=== PATIENT | female | born 1990 | race Caucasian/White ===

== ENCOUNTER 2020-06-28 13:48 | Emergency (ER) | payer OTHER ==
[~2020-06-28] VITALS: Ht 170.2 cm; Wt 77.1 kg
[2020-06-28] MEDS ORDERED: BIRTH CONTROL (13:58)
[2020-06-28] MEDS ORDERED: IBUPROFEN 800800 M1 PO (14:58)
[2020-06-28 15:16] VITALS: BP 120/60
== END 2020-06-28 15:17 | disposition home or self-care (01) ==
LOC: M.ERS 13:48
DX: S93.492A Sprain of other ligament of left ankle, initial encounter (principal); Z88.8 Allergy status to other drugs, medicaments and biological substances; X50.1XXA Overexertion from prolonged static or awkward postures, initial encounter; Y93.44 Activity, trampolining; Y92.89 Other specified places as the place of occurrence of the external cause; Y99.8 Other external cause status

== ENCOUNTER 2021-01-22 18:45 | Emergency (ER) | payer OTHER ==
[~2021-01-22] VITALS: Ht 170.2 cm; Wt 82.6 kg
[~2021-01-22 18:45] MED LIST: BIRTH CONTROL; IBUPROFEN 800800 M1 PO
[2021-01-22 19:31] LABS: ABSOLUTE EOSINOPHILS 0.2 thou/uL (0.0-0.7); ABSOLUTE LYMPHOCYTES 2.4 thou/uL (0.8-5.3); ABSOLUTE MONOCYTES 0.6 thou/uL (0.0-1.2); ABSOLUTE NEUTROPHILS 4.2 thou/uL (1.6-8.1); BASOPHILS 0.5 %; EOSINOPHILS 2.6 %; HEMATOCRIT 37.8 % (37.0-47.0); LYMPHOCYTES 32.1 %; MCHC 34.4 g/dL (28.0-37.0); MCV 84.4 fL (80.0-100.0); MONOCYTES 7.8 %; MPV 6.8 fl. (7.2-11.1); NUCLEATED RBCS 0 /100WBC; PLATELET COUNT* 303 thou/uL (150-400); RBC 4.48 mil/uL (4.20-5.00); RDW-CV 13.2 % (10.5-14.5); WBC 7.4 thou/uL (4.0-11.0)
[2021-01-22 19:36] LABS: URINE BILIRUBIN NEGATIVE (Negative); URINE BLOOD 2+ (Negative); URINE COLOR YELLOW; URINE GLUCOSE-RANDOM NEGATIVE (Negative); URINE KETONES NEGATIVE (Negative); URINE LEUKOCYTES-REFLEX NEGATIVE (Negative); URINE NITRITE-REFLEX NEGATIVE (Negative); URINE PROTEIN NEGATIVE (Negative)
[2021-01-22 19:37] LABS: URINE CLARITY CLOUDY
[2021-01-22 19:41] LABS: SQUAMOUS 4-10 Moderate /LPF (0-3)
[2021-01-22 19:41] LABS: CALCIUM 8.5 mg/dL (8.5-10.1); CREATININE 0.8 mg/dL (0.6-1.3); POTASSIUM 3.7 mmol/L (3.5-5.1)
[2021-01-22 19:42] LABS: AMORPHOUS URATES Few /LPF (None Seen); BACTERIA-REFLEX 1-9 Few /HPF (None Seen); CASTS None Seen /LPF (None Seen); URINE RBC 3-10 Few /HPF (0-2); URINE WBC-REFLEX None Seen /HPF (0-5)
[2021-01-22 19:44] LABS: ALBUMIN 3.9 g/dL (3.4-5.0); TOTAL BILIRUBIN 0.4 mg/dL (<0.1-1.0); TOTAL PROTEIN 7.4 g/dL (6.4-8.2)
[2021-01-22] MEDS ORDERED: TRAMADOL 50 MG50 MG PO (23:43)
[2021-01-22] MEDS ORDERED: ZOFRAN ODT4 MG PO (23:43)
[2021-01-22 23:49] VITALS: BP 132/70
== END 2021-01-22 23:50 | disposition home or self-care (01) ==
LOC: M.ERS 18:45
PROVIDERS: Physician Assistant
DX: R10.31 Right lower quadrant pain (principal); Z88.8 Allergy status to other drugs, medicaments and biological substances